=== PATIENT | female | born 1975 | race Caucasian/White ===

== ENCOUNTER 2016-08-13 06:09 | Emergency (ER) | payer OTHER ==
[~2016-08-13] VITALS: Ht 152.4 cm; Wt 51.8 kg
[2016-08-13 06:11] VITALS: BP 144/76; PULSE 104; RESP 26; O2SAT 100
--- NOTE | 2016-08-13 06:13 | ED.REPORT ---
HPI-General Illness Date of Service August 13, 2016 ED Provider: Ofelia Mott MD Patient is a 41 year old female with a history of eczema and asthma who presents to the ED due to a rash on her chest, back, neck and extremities onset yesterday. Associated symptoms include neck stiffness, swelling of her arms and legs, numbness of her arm and nausea. She denies abdominal pain and shortness of breath. Patient reports that she ate shrimp and drank green tea, which was different from her normal diet two days ago. Prior to arrival to the ED, the patient took 2 Benadryl yesterday with no relief. Nursing Notes Stated Complaint: POSS ALLERGIC REACTION Chief Complaint: Allergic Reaction Nursing Notes Reviewed: Yes Allergies: Coded Allergies: latex (Verified Allergy, Unknown, 08/13/16) Scheduled Methylprednisolone (MethylprednisoLONE) 8 Mg Tablet 8 MG PO DAILY 08/14 3 pills (24mg) 08/15 2 pills (16mg) 08/16 1.5 pills (12mg) 08/17 1 pill ( 8 mg) 08/18 1/2 pill (4mg) General Time Seen by MD: 06:41 Chief Complaint Rash Hx Obtained From: Patient Arrived By: Walk-in Sudden in Onset?: Yes Onset Occurred: 2 days ago Symptom Duration: Since onset Location: : Arm left: Arm right: Chest Quality: Itching Associated with: Reports: Numb extremities Recent Healthcare: No recent hospitalization, Recent doctor visit Similar Sx Previous: No Past Medical History Past Medical History allergic to avocados and dust Reports: Asthma Social History Other Social History: Good social support Ambulatory Status Independent Review of Systems Full Review of Systems Respiratory: Denies: Non-productive cough, Shortness of breath Cardiovascular: Denies: Chest pain GI: Reports: Nausea, Denies: Abdominal pain, Vomiting Musculoskeletal: Reports: Neck pain ("stiffness") Skin: Reports Rash (on chest, back, neck and extremities), Reports Swelling ( both arms and legs) Allergy / Immune: Reports: Itching Neurologic: Reports: Numbness (arms) Complete sys rev & neg: except as marked. Physical Exam Vital Signs Vital Signs Date Time Temp Pulse Resp B/P Pulse Ox O2 Delivery O2 Flow Rate FiO2 08/13/16 06:11 37.3 104 26 144/76 100 Room Air Initial VS: Reviewed General/Constitutional: Awake, Alert Head / Eyes: Atraumatic, Normocephalic, PERRL, EOMI periorbital edema injected sclera Neck: Atraumatic, Supple, Full range of motion Respiratory / Chest: Atraumatic, Breath sounds NL, Breath sounds = bilat, No respiratory distress Cardiovascular: Heart rate NL, Regular rhythm, Heart sounds NL Abdomen: Atraumatic, Soft, Non-tender Upper Extremities Upper Extremity / MS: Atraumatic, Full range of motion Right Forearm: Positive: Swelling present... Left Forearm: Positive: Swelling present... Wrist / Hand: Atraumatic, Full range of motion Right Wrist: Positive: Swelling present... Left Wrist: Positive: Swelling present... Skin: Atraumatic, Warm, Dry diffuse erythma rash over chest and abdomen, continuous on thighs less on the back over torso is blanchable, not palpable turns to urticarial over neck Neurologic: Oriented X3, Speech NL, No motor deficits, No sensory deficits Psychiatric: Affect NL, Mood NL Re-Eval/Medical Decision Time of Eval: 07:53 Patient Status: Condition improved Re-Evaluation/Progress Note: Discussed plan for discharge. The patient understands and agrees to the plan for discharge. All questions were addressed. Counseled Regarding: Diagnosis, Lab results, Need for follow-up, When/why to return to ED Discharge & Departure Primary Impression: Allergic reaction Encounter type: initial encounter Qualified Code: T78.40XA - Allergy, unspecified, initial encounter Disposition: Home Discharge Condition All VS Reviewed: Yes Condition: Stable Patient Instructions: General Allergic Reaction (ED) Additional Instructions: Thank you for trusting us with your care today. Finish the Solumol taper, you will need the first dose of this tomorrow. Take Zyrtec daily for the next two weeks for allergy symptoms and Benadryl as needed to help you sleep. Follow up with your primary care physician in 3-5 days. Please return to the emergency department if you develop any new or worsening symptoms including shortness of breath or fever. No more shrimp for you:( Referrals: [facility] Attestation Portions of this note were transcribed by Elsie Mendez. I, Dr. Mott personally performed the history, physical exam and medical decision-making; I reviewed and confirmed the accuracy of the information in the transcribed note. Signed by: Anatoliy Gibbons 08/13/16 and 0710 copies to: Rose Marte Shawna L MD August 13, 2016 06:13 Dawn Mendez August 13, 2016 06:48
[2016-08-13] MEDS ORDERED: Ondansetron 8 mg ODT Tablet PO ONE (06:50)
[2016-08-13] MEDS ORDERED: MethylprednisoLONE Sodium Succinate 62.5 mg/mL 2 mL Inj IM ONE (06:50)
[2016-08-13] MEDS ORDERED: diphenhydrAMINE 50 mg Capsule PO ONE (06:50)
[2016-08-13] MEDS ORDERED: METH8TAB5 PO (08:11)
[2016-08-13 08:35] VITALS: BP 105/64; PULSE 82; O2SAT 98
== END 2016-08-13 08:34 | disposition home or self-care (01) ==
LOC: SED 06:09
DX: T78.40XA Allergy, unspecified, initial encounter (principal); X58.XXXA Exposure to other specified factors, initial encounter; Y93.89 Activity, other specified; Y92.9 Unspecified place or not applicable; Y99.8 Other external cause status; J45.909 Unspecified asthma, uncomplicated; Z91.040 Latex allergy status; Z91.018 Allergy to other foods
CPT/HCPCS: 96372; 99283; J2930